=== PATIENT | female | born 1945 | race Caucasian/White ===

== ENCOUNTER → 2018-01-09 | Outpatient (CLI) | payer MEDICARE ==
[~2018-01-09] MED LIST: Abilify5 MG; CYAN1000I IM; Calcium 600 W/1 EAC1; Clonazepam1 M1 PO; DESVENLAFAXINE50 MG PO; FIBER LAXATIVE PO; FISH1000; FLUSAL2505 INH; GABA300 PO; HEARTBURN RELI150 MG PO; IPRA.03NI; MAGOXI400 PO; MARIJUANA; Multiple Vitam1 EAC1 PO; PREG150 PO; Pristiq100 MG PO; Pseudoephedrine30 MG PO; QVAR7.3 G1 IH; Reclast 55 MG/100 M IV; SIME80CH PO; STOOL SOFTENER1 EAC1; VITAMIN D35000 UNIT PO; ZIPR40 PO; [UNRECOGNIZED DRUG - OTHER]
[2018-01-10 08:04] LABS: Source, Urine Clean Catch
[2018-01-10 12:39] LABS: Bilirubin, Urine Neg (Neg); Blood, Urine 1+ (Neg); Glucose Qualitative, Urine Neg (Neg); Ketones, Urine Neg (Neg); Leukocyte Esterase, Urine 1+ (Neg); Nitrite, Urine Pos (Neg); Protein, Urine Neg (Neg); Urobilinogen, Urine NORM (Normal)
[2018-01-10 12:49] LABS: Appearance, Urine Clear (Clear); Color, Urine Yellow (P-Yellow)
[2018-01-10 12:52] LABS: Squamous Epithelial Cells Few /hpf (Few)
[2018-01-10 12:53] LABS: Bacteria Few /hpf
== END ==
LOC: LAB SHORT 17:10 → LAB 17:10
PROVIDERS: Registered Nurse
DX: R10.9 Unspecified abdominal pain (principal)
CPT/HCPCS: 81001; 87077; 87086; 87186

== ENCOUNTER → 2019-01-26 | Outpatient (CLI) | payer MEDICARE | END | disposition home or self-care (01) | LOC: LAB SHORT 14:22 → LAB 14:22 | DX: L08.0 Pyoderma (principal); L98.9 Disorder of the skin and subcutaneous tissue, unspecified | CPT/HCPCS: 87070; 87205 ==

== ENCOUNTER 2019-03-20 12:20 | Emergency (ER) | payer MEDICARE, SELFPAY ==
[~2019-03-20] VITALS: Ht 165.1 cm; Wt 70.3 kg
[2019-03-20 12:52] LABS: Source, Urine Clean Catch
[2019-03-20 12:57] LABS: Bilirubin, Urine Neg (Neg); Blood, Urine 1+ (Neg); Glucose Qualitative, Urine Neg (Neg); Ketones, Urine Neg (Neg); Leukocyte Esterase, Urine 3+ (Neg); Nitrite, Urine Pos (Neg); Protein, Urine Neg (Neg); Urobilinogen, Urine NORM (Normal)
[2019-03-20 13:16] LABS: Color, Urine Yellow (P-Yellow)
[2019-03-20 13:17] LABS: Appearance, Urine Clear (Clear)
[2019-03-20 13:19] LABS: Transitional Epithelial Cells Few /hpf ({null, 0-Rare}); White Blood Cells, Urine TNTC /hpf (0-5)
[2019-03-20 13:20] LABS: Bacteria Many /hpf; Squamous Epithelial Cells Rare /hpf (Few)
[2019-03-20] MEDS ORDERED: MECL12.5 PO (13:34)
[2019-03-20] MEDS ORDERED: Macrobid 100 M100 MG PO (13:34)
== END 2019-03-20 13:54 | disposition home or self-care (01) ==
LOC: ER 12:20
PROVIDERS: Internal Medicine
DX: N39.0 Urinary tract infection, site not specified (principal); H83.09 Labyrinthitis, unspecified ear; R42 Dizziness and giddiness; Z88.8 Allergy status to other drugs, medicaments and biological substances; Z79.899 Other long term (current) drug therapy; M79.7 Fibromyalgia; K21.9 Gastro-esophageal reflux disease without esophagitis; Z87.442 Personal history of urinary calculi; Z87.891 Personal history of nicotine dependence
CPT/HCPCS: 81001; 87077; 87086; 87186; 93005; 93010; 99284-25

== ENCOUNTER → 2019-05-05 | Outpatient (CLI) | payer MEDICARE, SELFPAY ==
[~2019-05-05] MED LIST changes: +MECL12.5 PO; +Macrobid 100 M100 MG PO
[2019-05-05 15:26] LABS: Source, Urine Clean Catch
[2019-05-05 17:01] LABS: Bilirubin, Urine Neg (Neg); Blood, Urine Neg (Neg); Glucose Qualitative, Urine Neg (Neg); Ketones, Urine Neg (Neg); Leukocyte Esterase, Urine Neg (Neg); Nitrite, Urine Neg (Neg); Protein, Urine Neg (Neg); Urobilinogen, Urine NORM (Normal)
[2019-05-05 17:15] LABS: Appearance, Urine Clear (Clear); Color, Urine Yellow (P-Yellow)
[2019-05-06 09:54] LABS: Candida species (DNA Probe) Negative (NEGATIVE); G. vaginalis (DNA Probe) Negative (NEGATIVE); T. vaginalis (DNA Probe) Negative (NEGATIVE)
== END | disposition home or self-care (01) ==
LOC: LAB SHORT 10:38 → LAB 10:38
PROVIDERS: Nurse Practitioner Obstetrics & Gynecology
DX: N76.0 Acute vaginitis (principal); R30.0 Dysuria
CPT/HCPCS: 81003; 87070; 87205; 87480; 87510; 87660

== ENCOUNTER → 2020-07-06 | Outpatient (CLI) | payer MEDICARE | END | disposition home or self-care (01) | LOC: PLD 17:27 → LAB SHORT 17:27 | DX: D22.72 Melanocytic nevi of left lower limb, including hip (principal) | CPT/HCPCS: 88305 ==

== ENCOUNTER → 2020-07-19 | Outpatient (CLI) | payer MEDICARE | LOC: LAB 19:18 → LAB SHORT 19:18 | DX: R32 Unspecified urinary incontinence (principal) | CPT/HCPCS: 87077; 87086; 87186 ==

== ENCOUNTER → 2020-08-19 | Outpatient (CLI) | payer MEDICARE | END | disposition home or self-care (01) | LOC: LAB 18:56 → LAB SHORT 18:56 | DX: R39.15 Urgency of urination (principal) | CPT/HCPCS: 87077; 87086; 87186 ==

== ENCOUNTER 2021-09-03 09:32 | Observation (INO) | payer MEDICARE ==
[~2021-09-03] VITALS: Ht 167.6 cm; Wt 63.9 kg
[2021-09-03 09:53] LABS: BASOPHILS ABSOLUTE AUTO 0.08 K/mm3 (0.00-0.23); BASOPHILS PERCENT AUTO 1 % (0-2); EOSINOPHILS ABSOLUTE AUTO 0.04 K/mm3 (0.00-0.68); EOSINOPHILS PERCENT AUTO 1 % (0-6); Hemoglobin 14.9 g/dL (11.5-16.0); IMMATURE GRAN ABSOLUTE AUTO 0.02 K/mm3 (0.00-0.10); IMMATURE GRAN PERCENT AUTO 0 % (0-1); LYMPHOCYTES ABSOLUTE AUTO 2.12 K/mm3 (0.84-5.20); LYMPHOCYTES PERCENT AUTO 28 % (21-46); MONOCYTES ABSOLUTE AUTO 0.55 K/mm3 (0.16-1.47); MONOCYTES PERCENT AUTO 7 % (4-13); Mean Corpuscular HGB 29.2 pg (26.0-34.0); Mean Corpuscular HGB Conc 33.9 g/dL (31.5-36.5); Mean Corpuscular Volume 86 fL (80-100); Mean Platelet Volume 11.7 fL (9.1-12.4); NEUTROPHILS ABSOLUTE AUTO 4.72 K/mm3 (1.96-9.15); NEUTROPHILS PERCENT AUTO 63 % (41-73); Platelet Count 216 K/mm3 (150-400); RDW Coefficient Variation 13.9 % (11.7-14.2); RDW Standard Deviation 44.1 fL (35.1-46.3); Red Blood Cell Count 5.11 M/mm3 (3.80-5.20); White Blood Cell Count 7.53 K/mm3 (4.00-11.30)
[2021-09-03 10:28] LABS: Influenza A, PCR NEGATIVE (NEGATIVE); Influenza B, PCR NEGATIVE (NEGATIVE); Resp Syncytial Virus, PCR NEGATIVE (NEGATIVE); SARS-Cov-2 (COVID-19) PCR, MMC NEGATIVE (NEGATIVE)
[2021-09-03 10:28] LABS: Albumin, Blood 3.6 g/dL (3.4-5.0); Bilirubin, Total 0.6 mg/dL (0.1-1.0); Bun/Creatinine Ratio 10.4 (12.0-20.0); Calcium, Blood 9.4 mg/dL (8.5-10.1); Creatinine, Blood 0.96 mg/dL (0.40-1.00); Globulin, Blood 3.6 g/dL (2.2-4.0); Potassium, Blood 3.4 mmol/L (3.5-5.5); Total Protein, Blood 7.2 g/dL (6.4-8.2); Troponin I 0.256 ng/mL (0.000-0.040)
[2021-09-03] MEDS ORDERED: Nexium40 MG PO (16:13)
--- NOTE | 2021-09-03 17:58 | NUR ---
SHIFT SUMMARY PT ARRIVED TO UNIT FROM ED. COMFORTABLE AT TIME OF ARRIVAL. VSS. HR NSR TO SB WITH PEAKED T WAVES. NO CP OR PRESSURE. TROPONIN TRENDING UP. PHYSICIAN AWARE. D/T PT HAVING NO SYMPTOMS ORDERS TO CONT TO TREND TROPONIN. NO DVT PROPHYLAXIS ORDERS, SEE PHYSICIAN NOTE. PT ALERT AND ORIENTED X 4. PT CONT TO COMPLAIN OF SEVERE NAUSEA. PHYSICIAN NOTIFIED. NEW ORDERS FOR PHENERGAN, SEE EMAR. ORDERS TO D/C COMPAZINE. PT ABLE TO TURN SELF IN BED. SBA. WILL CONT TO MONITOR UNTIL REPORT GIVEN TO KIERSTEN CARTER.
--- NOTE | 2021-09-04 00:17 | NUR ---
low hr provider notifeied about the patients low hr that has got as low as 39 bpm. pt is asymptomatic and has stable bp's that are wnl. provider aware and said to continue to monitor as long as she is asymptomatic.
--- NOTE | 2021-09-04 06:48 | NUR ---
DIRECTOR SPECIAL EDUCATION SUMMARY PT IS AXO X4 THIS SHIFT AND USES HER CALL LIGHT TO MAKE NEEDS KNOWN. PT DENIED ANY CP OR PRESSURE THIS SHIFT. PT REPORTED MINIMAL NAUSEA THIS SHIFT W RELIEF W IV PHENERGAN, NO EMESIS NOTED THIS SHIFT. VSS AND O2 SATS >90% ON RM AIR. TELE SHOWING SB IN THE 50'S BUT THE PT'S HR GOT LOW 39 BPM WHILE ASLEEP, PROVIDER NOTIFIED BUT PT WAS ASYMPTOMATIC. NS RUNNING AT 75ML/HR THIS SHIFT. PRN ATIVAN OBTAINED WHICH IS SAME DOSE PT TAKES AT HOME SO SHE WAS GIVEN A BEDTIME DOSE HOWEVER THE PT REQUESTED MORE ATIVAN THROUGHOUT THE SHIFT DESPITE BEING TOLD IT WAS A BEDTIME ORDER. WILL REPORT TO ONCOMING RN.
[2021-09-04 08:33] LABS: Hematocrit 37.2 % (33.0-51.0); Hemoglobin 12.5 g/dL (11.5-16.0)
[2021-09-04 08:45] LABS: Anion Gap 7 mmol/L (6-16); Blood Urea Nitrogen 11 mg/dL (8-24); Bun/Creatinine Ratio 12.8 (12.0-20.0); CO2, Blood 21 mmol/L (21-32); Calcium, Blood 8.3 mg/dL (8.5-10.1); Chloride, Blood 118 mmol/L (98-108); Creatinine, Blood 0.86 mg/dL (0.40-1.00); Glomerular Filtration Rate >60 (60-); Glucose, Blood 86 mg/dL (70-99); Potassium, Blood 3.3 mmol/L (3.5-5.5); Sodium, Blood 146 mmol/L (136-145)
--- NOTE | 2021-09-04 13:15 | NUR ---
Echocardiogram completed.
--- NOTE | 2021-09-04 18:50 | NUR ---
NO ACUTE CHANGES. SEE PREVIOUS NOTE. NAUSEA RELIEVED WITH PHENERGAN PRN. NS INFUSING AT 75 ML/HR. POTASSIUM INFUSED THIS SHIFT. DR. POSADA PLAN TO SEE PATIENT THIS EVENING. TELE REMAINS UNCHANGED. ON ROOM AIR. FORGETFUL AT TIMES. CALL LIGHT REMAINS IN REACH. SLEEPING AT THIS TIME. LOW APPETITE. TOLERATING CLEAR LIQUID DIET. 2 SMALL EPISODES OF LOOSE STOOL. UP TO BSC WITH SBA. CALL LIGHT IN REACH, WILL CONTINUE TO MONITOR AND REPORT OFF.
[2021-09-05 03:38] LABS: Hematocrit 36.9 % (33.0-51.0); Hemoglobin 12.3 g/dL (11.5-16.0); Mean Corpuscular HGB 29.5 pg (26.0-34.0); Mean Corpuscular HGB Conc 33.3 g/dL (31.5-36.5); Mean Corpuscular Volume 89 fL (80-100); Mean Platelet Volume 11.4 fL (9.1-12.4); Platelet Count 147 K/mm3 (150-400); RDW Coefficient Variation 14.3 % (11.7-14.2); RDW Standard Deviation 46.1 fL (35.1-46.3); Red Blood Cell Count 4.17 M/mm3 (3.80-5.20); White Blood Cell Count 7.58 K/mm3 (4.00-11.30)
[2021-09-05 03:58] LABS: Alanine Aminotransfer (ALT/SGP 48 U/L (12-78); Albumin, Blood 3.1 g/dL (3.4-5.0); Alk Phos 67 U/L (50-136); Anion Gap 10 mmol/L (6-16); Aspartate Aminotrans (AST/SGOT 59 U/L (12-37); Bilirubin, Total 0.5 mg/dL (0.1-1.0); Blood Urea Nitrogen 9 mg/dL (8-24); Bun/Creatinine Ratio 11.2 (12.0-20.0); CO2, Blood 20 mmol/L (21-32); Calcium, Blood 8.4 mg/dL (8.5-10.1); Chloride, Blood 115 mmol/L (98-108); Glomerular Filtration Rate >60 (60-); Glucose, Blood 83 mg/dL (70-99); Potassium, Blood 3.3 mmol/L (3.5-5.5); Sodium, Blood 145 mmol/L (136-145); Total Protein, Blood 6.1 g/dL (6.4-8.2)
--- NOTE | 2021-09-05 05:31 | NUR ---
CONTINUOUS MINING MACHINE OPERATOR SUMMARY PT IS AXO X4 BUT HAD SOME MOMENTS OF CONFUSION WHEN AWAKENING IN THE NIGHT. PT'S O2 SATS >92% ON RM AIR. BP ELEVATED THIS AM SO PRN HYDRALAZINE ORDER OBTAINED. HR HAS BEEN SB IN THE 50'S FOR MOST OF THE SHIFT. PT AFEBRILE THIS SHIFT. PT HAVING MINOR EPISODES OF NAUSEA THAT WAS RELIEVED W NAUSEA MEDICATION. WILL REPORT TO ONCOMING RN.
--- NOTE | 2021-09-05 11:07 | NUR ---
Call from Dr. Oconnor. Keep pt NPO: he thinks that the EGD can be done early afternoon.
--- NOTE | 2021-09-05 11:56 | NUR ---
Telephone report given to surgical assist; pt will transferred to surgical unit shortly.
--- NOTE | 2021-09-05 17:38 | NUR ---
PT. C/O RESTLESS LEGS TODAY AND STATES SHE CANT TAKE IT. CALL TO DR. ELI AND A ONE TIME ATIVAN PO GIVEN, PT. VERBALIZE RELIEF AND IS RESTING WITHOUT FURTHER COMPLAINT. WHEN UP TO FLOOR TODAY AT 1315 PT. GIVEN PHENERGAN AND VERBZLIZE RELIEF WITH NO FURHTER C/O NAUSEA. TAKING SMALL AMOUNT FULL LIQUID DIET. REMINDED PT. THAT SHE IS TO ONLY HAVE WATER AFTER SHE EATS HER DINNER, VERBALIZE UNDERSTANDING. PLAN; NPO AFTER 1100 ON 11/07 FOR PLANNED EGD AT 1400.
--- NOTE | 2021-09-06 03:37 | NUR ---
SHIFT SUMMARY A/OX4. NO N/V REPORTED BY PATIENT. ATIVAN GIVEN AT SHIFT CHANGE FOR ANXIETY. PT REPORTS SLEEPING WELL THROUGHOUT THE NIGHT. HAS REMAINED NPO EXCEPT WATER THROUGHOUT SHIFT. VOIDING WELL. IND TO THE BATHROOM. WILL REPORT TO ONCOMING RN.
[2021-09-06 05:34] LABS: BASOPHILS ABSOLUTE AUTO 0.09 K/mm3 (0.00-0.23); BASOPHILS PERCENT AUTO 1 % (0-2); EOSINOPHILS ABSOLUTE AUTO 0.14 K/mm3 (0.00-0.68); EOSINOPHILS PERCENT AUTO 2 % (0-6); Hematocrit 40.2 % (33.0-51.0); Hemoglobin 13.9 g/dL (11.5-16.0); IMMATURE GRAN ABSOLUTE AUTO 0.01 K/mm3 (0.00-0.10); IMMATURE GRAN PERCENT AUTO 0 % (0-1); LYMPHOCYTES ABSOLUTE AUTO 2.21 K/mm3 (0.84-5.20); LYMPHOCYTES PERCENT AUTO 27 % (21-46); MONOCYTES PERCENT AUTO 11 % (4-13); Mean Corpuscular HGB 29.7 pg (26.0-34.0); Mean Corpuscular HGB Conc 34.6 g/dL (31.5-36.5); Mean Corpuscular Volume 86 fL (80-100); Mean Platelet Volume 11.7 fL (9.1-12.4); NEUTROPHILS ABSOLUTE AUTO 4.88 K/mm3 (1.96-9.15); NEUTROPHILS PERCENT AUTO 59 % (41-73); Platelet Count 171 K/mm3 (150-400); RDW Coefficient Variation 13.8 % (11.7-14.2); RDW Standard Deviation 43.4 fL (35.1-46.3); Red Blood Cell Count 4.68 M/mm3 (3.80-5.20); White Blood Cell Count 8.23 K/mm3 (4.00-11.30)
[2021-09-06 06:48] LABS: Albumin, Blood 3.4 g/dL (3.4-5.0); Anion Gap 13 mmol/L (6-16); Blood Urea Nitrogen 9 mg/dL (8-24); Bun/Creatinine Ratio 10.7 (12.0-20.0); CO2, Blood 21 mmol/L (21-32); Calcium, Blood 9.2 mg/dL (8.5-10.1); Chloride, Blood 110 mmol/L (98-108); Creatinine, Blood 0.84 mg/dL (0.40-1.00); Glomerular Filtration Rate >60 (60-); Glucose, Blood 67 mg/dL (70-99); Phosphorus, Blood 2.9 mg/dL (2.5-4.9); Potassium, Blood 3.5 mmol/L (3.5-5.5); Sodium, Blood 144 mmol/L (136-145)
--- NOTE | 2021-09-06 12:30 | NUR ---
GLUCOSE THIS A.M. WAS 67, MD AWARE. 10/08 AMP D50 GIVEN AT 10 FOR BLOOD SUGAR 76 PER ORDER. AT NOON BLOOD SUGAR 86MG/DL. DENIED ANY NAUSEA OR DISCOMFORT. AMBULATES WITH STEADY GAIT.
--- NOTE | 2021-09-06 14:22 | NUR ---
TO EGD VIA [facility] AT THIS TIME.
--- NOTE | 2021-09-06 15:14 | NUR ---
09/06/21 1514 [place] Bite Block Placed. PATIENT DETERMINED TO BE ASA APPROPRIATE FOR PROPOFOL SEDATION PRIOR TO START OF PROCEDURE BY DR. POSADA. 3-LEAD EKG REVIEWED WITH PHYSICIAN PRIOR TO START OF PROCEDURE. Patient to ENDO 1 History, Chart, Medications and Allergies reviewed before start of procedure. MONITOR INTACT WITH CONTINUOUS PULSE OXIMETRY AND INTERMITTENT BP. BNO2 VIA N/C INTACT THROUGHOUT SEDATION/PROCEDURE.
--- NOTE | 2021-09-06 15:40 | NUR ---
RETURN TO ROOM VIA [facility]. VOICES NO COMPLAINT. TEA AND WATER GIVEN.
--- NOTE | 2021-09-06 18:08 | NUR ---
CALL TO DR. ELI REGARDING PT. REQUEST FOR DISCHARGE. NO NEW ORDERS OF YET. PATIENT NOTIFIED OF POSSIBLE DISCHARGE THIS EVENING. SIGNIFICANT OTHER LEFT AT THIS TIME TO OBTAIN PATIENT A COAT, IF DISCHARGED, TO WEAR HOME. AT THIS TIME PT. IS DECLINING TELEMETRY.
--- NOTE | 2021-09-06 18:24 | NUR ---
ORDER RECIEVED FOR PT. DISCHARGE.
--- NOTE | 2021-09-06 19:00 | NUR ---
pt. discharged to home. significant other here to take pt. home. belongings sent with patient and dc instructions explained and given. iv rue removed with cannula intact. patient to f/u with pcp in 74 hours. w/c to exit. denies nausea. vss.
== END 2021-09-06 18:50 | disposition home or self-care (01) ==
LOC: ER 09:32 → ERHOLD 09:33 → SURS 09:33 → PCU 09:33 → SURS 09-05 12:08
PROVIDERS: Emergency Medicine; Family Medicine; ADMIT Internal Medicine
DX: R11.2 Nausea with vomiting, unspecified (principal); K44.9 Diaphragmatic hernia without obstruction or gangrene; K31.89 Other diseases of stomach and duodenum; K31.7 Polyp of stomach and duodenum; E87.6 Hypokalemia; R74.8 Abnormal levels of other serum enzymes; D75.839 Thrombocytosis, unspecified; K52.9 Noninfective gastroenteritis and colitis, unspecified; J44.9 Chronic obstructive pulmonary disease, unspecified; K21.9 Gastro-esophageal reflux disease without esophagitis; Z87.891 Personal history of nicotine dependence; M79.7 Fibromyalgia; Z86.010 Personal history of colon polyps; Z90.49 Acquired absence of other specified parts of digestive tract; Z80.0 Family history of malignant neoplasm of digestive organs; Z88.8 Allergy status to other drugs, medicaments and biological substances; Z79.899 Other long term (current) drug therapy; Z20.822 Contact with and (suspected) exposure to COVID-19
CPT/HCPCS: 0241U; 36415; 71045; 80048; 80053; 80069; 82947; 84484; 85014; 85018; 85025; 85027; 93005; 93010; 93306; 96365; 96366; 96372; 96375; 96376; 99285-25; A9270; C9113; G0378; J0780; J1650; J2405; J2550; J2704; J3480; J7030

== ENCOUNTER 2022-03-16 11:46 | Emergency (ER) | payer OTHER ==
[~2022-03-16] VITALS: Ht 177.8 cm; Wt 77.1 kg
[~2022-03-16 11:46] MED LIST changes: +Nexium40 MG PO
[2022-03-16 14:51] LABS: BASOPHILS ABSOLUTE AUTO 0.04 K/mm3 (0.00-0.23); BASOPHILS PERCENT AUTO 1 % (0-2); EOSINOPHILS PERCENT AUTO 0 % (0-6); Hemoglobin 13.3 g/dL (11.5-16.0); IMMATURE GRAN ABSOLUTE AUTO 0.01 K/mm3 (0.00-0.10); IMMATURE GRAN PERCENT AUTO 0 % (0-1); LYMPHOCYTES ABSOLUTE AUTO 1.19 K/mm3 (0.84-5.20); LYMPHOCYTES PERCENT AUTO 24 % (21-46); MONOCYTES ABSOLUTE AUTO 0.26 K/mm3 (0.16-1.47); MONOCYTES PERCENT AUTO 5 % (4-13); Mean Corpuscular HGB 28.4 pg (26.0-34.0); Mean Corpuscular HGB Conc 34.1 g/dL (31.5-36.5); Mean Corpuscular Volume 83 fL (80-100); Mean Platelet Volume 11.5 fL (9.1-12.4); NEUTROPHILS ABSOLUTE AUTO 3.37 K/mm3 (1.96-9.15); NEUTROPHILS PERCENT AUTO 69 % (41-73); Platelet Count 232 K/mm3 (150-400); RDW Coefficient Variation 14.1 % (11.7-14.2); Red Blood Cell Count 4.68 M/mm3 (3.80-5.20); White Blood Cell Count 4.87 K/mm3 (4.00-11.30)
[2022-03-16 15:07] LABS: Albumin, Blood 3.8 g/dL (3.4-5.0); Bilirubin, Total 0.5 mg/dL (0.1-1.0); Bun/Creatinine Ratio 9.9 (12.0-20.0); Calcium, Blood 9.5 mg/dL (8.5-10.1); Creatinine, Blood 0.81 mg/dL (0.40-1.00); Globulin, Blood 3.7 g/dL (2.2-4.0); Potassium, Blood 3.2 mmol/L (3.5-5.5); Total Protein, Blood 7.5 g/dL (6.4-8.2)
[2022-03-16 16:32] LABS: Source, Urine Clean Catch
[2022-03-16 17:11] LABS: Appearance, Urine Clear (Clear); Bilirubin, Urine Neg (Neg); Blood, Urine Neg (Neg); Color, Urine Yellow (P-Yellow); Glucose Qualitative, Urine Neg (Neg); Ketones, Urine 3+ (Neg); Leukocyte Esterase, Urine Neg (Neg); Nitrite, Urine Neg (Neg); Protein, Urine 1+ (Neg); Urobilinogen, Urine NORM (Normal)
[2022-03-16] MEDS ORDERED: ONDA4ODT MM (20:32)
== END 2022-03-16 21:26 | disposition home or self-care (01) ==
LOC: ER 11:46
PROVIDERS: Physician Assistant
DX: R11.2 Nausea with vomiting, unspecified (principal); J44.9 Chronic obstructive pulmonary disease, unspecified; Z88.8 Allergy status to other drugs, medicaments and biological substances; Z79.899 Other long term (current) drug therapy; Z87.891 Personal history of nicotine dependence
CPT/HCPCS: 36415; 70450; 74177; 80053; 83690; 85025; 96374; 96375; 96376; 99284-25; A9270; J1200; J1790; J2060; J2405; J2765; Q9967

== ENCOUNTER → 2022-06-20 | Outpatient (CLI) | payer OTHER ==
[~2022-06-20] MED LIST changes: +ONDA4ODT MM
[2022-06-20 19:40] LABS: Protein, Urine Quantitative <5.0 mg/dL (0.0-11.9)
== END | disposition home or self-care (01) ==
LOC: LAB 14:32 → LAB SHORT 14:32 → LAB FUT 06-13 16:15
PROVIDERS: Internal Medicine Nephrology
DX: N18.30 Chronic kidney disease, stage 3 unspecified (principal); D63.1 Anemia in chronic kidney disease; N25.81 Secondary hyperparathyroidism of renal origin; E55.9 Vitamin D deficiency, unspecified; E78.00 Pure hypercholesterolemia, unspecified; G60.9 Hereditary and idiopathic neuropathy, unspecified; D50.9 Iron deficiency anemia, unspecified; D51.8 Other vitamin B12 deficiency anemias; R76.9 Abnormal immunological finding in serum, unspecified; R94.5 Abnormal results of liver function studies; R94.6 Abnormal results of thyroid function studies
CPT/HCPCS: 81050; 82043; 82570; 84156

== ENCOUNTER → 2022-07-04 | Outpatient (CLI) | payer OTHER ==
[~2022-07-04] MED LIST changes: +ACYC400 PO; +ARIPIPRAZOLE10 M4 PO; +Ativan1 MG PO; +Cyclobenzaprine5 MG; +DESV50 PO; +ESOMEPRAZOLE MA40 MG PO; +FLUTICASONE-SA1 EAC9 INH; +LOSARTAN POTASS25 M2 PO; +PREG200 PO; +TRAM50 PO; +TRAZ150T57 PO; +Ventolin/Prove6.7 GM INH
== END | disposition home or self-care (01) ==
LOC: LAB 11:45 → LAB SHORT 11:45
DX: R30.0 Dysuria (principal)
CPT/HCPCS: 87086

== ENCOUNTER 2022-07-11 17:16 | Inpatient (IN) | payer OTHER ==
[~2022-07-11] VITALS: Ht 170.2 cm; Wt 61.5 kg
[~2022-07-11 17:16] MED LIST changes: -ACYC400 PO; -ARIPIPRAZOLE10 M4 PO; -Ativan1 MG PO; -Cyclobenzaprine5 MG; -DESV50 PO; -ESOMEPRAZOLE MA40 MG PO; -FLUTICASONE-SA1 EAC9 INH; -LOSARTAN POTASS25 M2 PO; -PREG200 PO; -TRAM50 PO; -TRAZ150T57 PO; -Ventolin/Prove6.7 GM INH
[2022-07-11 18:24] LABS: BASOPHILS ABSOLUTE AUTO 0.06 K/mm3 (0.00-0.23); BASOPHILS PERCENT AUTO 1 % (0-2); EOSINOPHILS ABSOLUTE AUTO 0.02 K/mm3 (0.00-0.68); EOSINOPHILS PERCENT AUTO 0 % (0-6); Hematocrit 38.7 % (33.0-51.0); Hemoglobin 13.8 g/dL (11.5-16.0); IMMATURE GRAN ABSOLUTE AUTO 0.01 K/mm3 (0.00-0.10); IMMATURE GRAN PERCENT AUTO 0 % (0-1); LYMPHOCYTES ABSOLUTE AUTO 1.54 K/mm3 (0.84-5.20); LYMPHOCYTES PERCENT AUTO 25 % (21-46); MONOCYTES ABSOLUTE AUTO 0.76 K/mm3 (0.16-1.47); MONOCYTES PERCENT AUTO 13 % (4-13); Mean Corpuscular HGB 28.8 pg (26.0-34.0); Mean Corpuscular HGB Conc 35.7 g/dL (31.5-36.5); Mean Corpuscular Volume 81 fL (80-100); Mean Platelet Volume 11.8 fL (9.1-12.4); NEUTROPHILS ABSOLUTE AUTO 3.68 K/mm3 (1.96-9.15); NEUTROPHILS PERCENT AUTO 61 % (41-73); Platelet Count 333 K/mm3 (150-400); RDW Coefficient Variation 13.9 % (11.7-14.2); RDW Standard Deviation 40.8 fL (35.1-46.3); Red Blood Cell Count 4.79 M/mm3 (3.80-5.20); White Blood Cell Count 6.07 K/mm3 (4.00-11.30)
[2022-07-11 18:43] LABS: Albumin, Blood 3.9 g/dL (3.4-5.0); Albumin/Globulin Ratio 1.2 (0.8-1.8); Bilirubin, Total 0.6 mg/dL (0.1-1.0); Bun/Creatinine Ratio 6.3 (12.0-20.0); Calcium, Blood 10.2 mg/dL (8.5-10.1); Creatinine, Blood 0.96 mg/dL (0.40-1.00); Globulin, Blood 3.2 g/dL (2.2-4.0); Potassium, Blood 3.2 mmol/L (3.5-5.5); Total Protein, Blood 7.1 g/dL (6.4-8.2)
[2022-07-11 20:08] LABS: Influenza A, PCR NEGATIVE (NEGATIVE); Influenza B, PCR NEGATIVE (NEGATIVE); Resp Syncytial Virus, PCR NEGATIVE (NEGATIVE)
[2022-07-11 20:17] LABS: Magnesium, Blood 1.8 mg/dL (1.6-2.4)
[2022-07-11 20:20] LABS: Source, Urine Clean Catch
[2022-07-11 20:30] LABS: Appearance, Urine Clear (Clear); Bilirubin, Urine Neg (Neg); Blood, Urine Neg (Neg); Color, Urine Yellow (P-Yellow); Glucose Qualitative, Urine Neg (Neg); Ketones, Urine 3+ (Neg); Leukocyte Esterase, Urine 1+ (Neg); Nitrite, Urine Neg (Neg); Protein, Urine 1+ (Neg); Specific Gravity, Urine 1.015 (1.003-1.022); Urobilinogen, Urine NORM (Normal)
[2022-07-11] MEDS ORDERED: TRAZ150T57 PO (20:30)
[2022-07-11] MEDS ORDERED: Ativan1 MG PO (20:30)
[2022-07-11] MEDS ORDERED: TRAM50 PO (20:31)
[2022-07-11] MEDS ORDERED: ESOMEPRAZOLE MA40 MG PO (20:31)
[2022-07-11] MEDS ORDERED: Ventolin/Prove6.7 GM INH (20:31)
[2022-07-11] MEDS ORDERED: PREG200 PO (20:32)
[2022-07-11] MEDS ORDERED: ARIPIPRAZOLE10 M4 PO (20:32)
[2022-07-11] MEDS ORDERED: FLUTICASONE-SA1 EAC9 INH (20:36)
[2022-07-11] MEDS ORDERED: LOSARTAN POTASS25 M2 PO (20:36)
[2022-07-11] MEDS ORDERED: Cyclobenzaprine5 MG (20:37)
[2022-07-11 20:42] LABS: Thyroid Stimulating Hormone 1.48 uIU/mL (0.360-4.800)
[2022-07-11 20:45] LABS: SARS-Cov-2 (COVID-19) PCR, MMC POSITIVE (NEGATIVE)
[2022-07-11 20:46] LABS: Bacteria Few /hpf; Calcium Oxalate Crystals Few /hpf; Mucus Light (0-Heavy); Squamous Epithelial Cells Few /hpf (Few)
--- NOTE | 2022-07-12 04:53 | NUR ---
SHIFT SUMMARY PATIENT IS ALERT BUT CONFUSED. PATIENT IS EXTREMELY CONFUSED AND HAS CONSTANTLY TRIED TO GET OUT OF BED. PATIENT PULLED IV THIS SHIFT. PATIENT HAS HAD VEST RESTRAINTS WELL BILATERAL WRIST RESTRAINTS ADDED DUE TO PULLING LINES. PATIENT WAS PUT ON CAMERA FOR SAFETY. PATIENT HAS NOT COMPLAINED OF PAIN, SOB THIS SHIFT. PATIENT HAD COMPLAINED OF N/V AND DRY HEAVED IN BEGINNING OF SHIFT BUT NOTHING RECENT. BED IN LOCKED AND LOWEST POSITION. CALL LIGHT IN PLACE. WILL MONITOR UNTIL SHIFT.
[2022-07-12 05:27] LABS: BASOPHILS ABSOLUTE AUTO 0.05 K/mm3 (0.00-0.23); BASOPHILS PERCENT AUTO 1 % (0-2); EOSINOPHILS ABSOLUTE AUTO 0.03 K/mm3 (0.00-0.68); EOSINOPHILS PERCENT AUTO 1 % (0-6); Hematocrit 37.7 % (33.0-51.0); Hemoglobin 12.8 g/dL (11.5-16.0); IMMATURE GRAN ABSOLUTE AUTO 0.02 K/mm3 (0.00-0.10); IMMATURE GRAN PERCENT AUTO 0 % (0-1); LYMPHOCYTES ABSOLUTE AUTO 1.83 K/mm3 (0.84-5.20); LYMPHOCYTES PERCENT AUTO 28 % (21-46); MONOCYTES ABSOLUTE AUTO 0.92 K/mm3 (0.16-1.47); MONOCYTES PERCENT AUTO 14 % (4-13); Mean Corpuscular HGB 27.9 pg (26.0-34.0); Mean Corpuscular Volume 82 fL (80-100); Mean Platelet Volume 11.7 fL (9.1-12.4); NEUTROPHILS ABSOLUTE AUTO 3.78 K/mm3 (1.96-9.15); NEUTROPHILS PERCENT AUTO 57 % (41-73); Platelet Count 351 K/mm3 (150-400); RDW Coefficient Variation 13.9 % (11.7-14.2); RDW Standard Deviation 41.1 fL (35.1-46.3); Red Blood Cell Count 4.59 M/mm3 (3.80-5.20); White Blood Cell Count 6.63 K/mm3 (4.00-11.30)
[2022-07-12 05:46] LABS: Albumin, Blood 3.6 g/dL (3.4-5.0); Albumin/Globulin Ratio 1.2 (0.8-1.8); Bilirubin, Total 0.7 mg/dL (0.1-1.0); Bun/Creatinine Ratio 8.4 (12.0-20.0); Calcium, Blood 9.3 mg/dL (8.5-10.1); Creatinine, Blood 0.83 mg/dL (0.40-1.00); Globulin, Blood 2.9 g/dL (2.2-4.0); Potassium, Blood 3.2 mmol/L (3.5-5.5); Total Protein, Blood 6.5 g/dL (6.4-8.2)
[2022-07-12 06:39] LABS: Magnesium, Blood 1.9 mg/dL (1.6-2.4)
--- NOTE | 2022-07-12 18:54 | NUR ---
SHIFT SUMMARY PT IS EXTREMELY ANXIOUS. SHE HAS BEEN CALLING OUT ALL DAY DESPITE BEING MEDICATED. SHE S UNABLE TO NAME HER NEEDS WHEN ASKED HOW WE CAN HELP HER. SHE EELS URGENCY AND BURNING WHEN URINATING. SHE IS IN RESTRAINTS TO PREVENT FALLS, AND TO HELP PROTECT LINES NEEDED FOR ABX. SHE IS A STANDBY TO THE BATHROOM. SHE HAS A POOR APPETITE.
--- NOTE | 2022-07-13 04:02 | NUR ---
PT IN ISOLATION FOR COVID. PT IN RESTRAINTS - SOFT WRIST BILATERALLY AND TAJ VEST. PT AMBULATED TO THE BATHROOM WITH GB AND FWW AND 2 STAFF ASSIST, UNSTEADY ON HER FEET. PT IS CONFUSED, ASKING TO LEAVE. RESTRAINTS FOR PRESERVATION OF LINES, AND SAFETY OF PT SHE IS A HIGH FALL RISK AND IMPULSIVE. PT PULLED OUT ONE IV, RN PLACED ANOTHER IN THE LEFT WRIST. AWAITING URINE COLLECTION FOR TOXICOLOGY SCREEN BUT PT VOIDS IN ATTENDS, AND HASN'T VOIDED IN THE HAT. SHE C/O URINARY URGENCY, BUT WILL NOT VOID IN THE TOILET. BED IN LOWEST POSITION. REMOTE MONITORING IN PLACE. RN WILL MONITOR UNTIL SHIFT CHANGE.
--- NOTE | 2022-07-13 05:54 | NUR ---
ADEEL HAD FOUR LOOSE, WATERY STOOLS THIS SHIFT. COLLECTED A STOOL SPECIMEN. DR. ECHAVARRIA WITH ORDERS FOR A GI PANEL. SENT STOOL SPECIMEN TO LAB. PT HAS NOT VOIDED URINE IN THE TOILET, UNABLE TO COLLECT TOXICOLOGY SCREEN.
--- NOTE | 2022-07-13 06:30 | NUR ---
ADMINISTERED LOPERAMIDE PER PRN EMAR ORDER.
[2022-07-13 09:08] LABS: Adenovirus F 40/41 Not Detected (NOT DETECT); Astrovirus Not Detected (NOT DETECT); Campylobacter Sp Not Detected (NOT DETECT); Cryptosporidium Not Detected (NOT DETECT); Cyclospora Cayetanensis Not Detected (NOT DETECT); E. Coli O157 Not Detected (NOT DETECT); Entamoeba Histolytica Not Detected (NOT DETECT); Enteroaggregative E. coli-EAEC Not Detected (NOT DETECT); Enteropathogenic E. coli-EPEC Not Detected (NOT DETECT); Enterotoxigenic E. coli-ETEC Not Detected (NOT DETECT); Giardia Lamblia Not Detected (NOT DETECT); Norovirus GI/GII Not Detected (NOT DETECT); Plesiomonas Shigelloides Not Detected (NOT DETECT); Rotavirus A Not Detected (NOT DETECT); Salmonella Sp Not Detected (NOT DETECT); Sapovirus Not Detected (NOT DETECT); Shiga Toxin-prod E. coli-STEC Not Detected (NOT DETECT); Shigella/Enteroin E. coli-EIEC Not Detected (NOT DETECT); Vibrio Cholerae Not Detected (NOT DETECT); Vibrio Sp Not Detected (NOT DETECT); Yersinia Enterocolitica Not Detected (NOT DETECT)
--- NOTE | 2022-07-13 19:51 | NUR ---
END OF SHIFT SUMMARY: PATIENT SHOWED IMPROVEMENT IN MENTATION AND PHYSICAL COMFORT THROUGHOUT THE DAY. PATIENT STARTED THE SHIFT WITH TREMBLING HANDS AND INABILITY TO ARTICULATE THOUGHTS OR ANSWER QUESTIONS FULLY. BY THE END OF THE SHIFT, PATIENTS HANDS WERE CALM AND SHE WAS ABLE TO FORM SHORT, COMPLETE SENTENCES. PATIENT ABLE TO FOLLOW DIRECTIONS THROUGHOUT THE DAY. PATIENT HAS A VERY MINIMAL APPETITE. NO SHORTNESS OF BREATH OR DIFFICULTY BREATHING NOTED. PATIENT COMPLIANT WITH MEDICATIONS. PATIENT UP TO THE BATHROOM WITH URGENCY. PATIENT UP TO THE CHAIR AND RECLINER. PATIENT WORKED WITH PT.
--- NOTE | 2022-07-14 04:50 | NUR ---
SHIFT SUMMARY 76 YR F ADMITTED ON 07/11/22 FOR UTI/AMS. FULL CODE. NO ACUTE CHANGES THIS SHIFT. PT HAD A TAJ VEST WHEN THIS NURSE CAME ON SHIFT BUT PT WAS SITTING UP IN THE CHAIR AND WAS NOT ATTEMPTING TO GET UP ON HER OWN SO RESTRAINT ORDER WAS DC'D. SHE HAS HAD TROUBLE SLEEPING AND THE SHIFT WORE ON PT BECAME INCREASINGLY ANXIOUS CALLING OUT FOR HELP. WHEN SHE WAS ASKED WHAT SHE NEEDED, SHE SAID SHE NEEDED SLEEP. LATE IN THE SHIFT SHE HAS MADE SEVERAL ATTEMPT TO GET OUT OF BED UNSUPERVISED AND THIS NURSE HAS TRIED REASONING AND DISTRACTION. SHE MAY END UP BEING PUT BACK INTO A TAJ VEST FOR HER OWN SAFETY. SHE IS VERY CONFUSED AND IS NOT EASILY REDIRECTED.
[2022-07-14 08:39] LABS: BASOPHILS ABSOLUTE AUTO 0.09 K/mm3 (0.00-0.23); BASOPHILS PERCENT AUTO 1 % (0-2); EOSINOPHILS ABSOLUTE AUTO 0.12 K/mm3 (0.00-0.68); EOSINOPHILS PERCENT AUTO 2 % (0-6); Hematocrit 39.3 % (33.0-51.0); Hemoglobin 13.5 g/dL (11.5-16.0); IMMATURE GRAN ABSOLUTE AUTO 0.01 K/mm3 (0.00-0.10); IMMATURE GRAN PERCENT AUTO 0 % (0-1); LYMPHOCYTES ABSOLUTE AUTO 2.14 K/mm3 (0.84-5.20); LYMPHOCYTES PERCENT AUTO 32 % (21-46); MONOCYTES ABSOLUTE AUTO 0.92 K/mm3 (0.16-1.47); MONOCYTES PERCENT AUTO 14 % (4-13); Mean Corpuscular HGB 28.4 pg (26.0-34.0); Mean Corpuscular HGB Conc 34.4 g/dL (31.5-36.5); Mean Corpuscular Volume 83 fL (80-100); Mean Platelet Volume 11.3 fL (9.1-12.4); NEUTROPHILS ABSOLUTE AUTO 3.38 K/mm3 (1.96-9.15); NEUTROPHILS PERCENT AUTO 51 % (41-73); Platelet Count 315 K/mm3 (150-400); RDW Coefficient Variation 14.3 % (11.7-14.2); Red Blood Cell Count 4.75 M/mm3 (3.80-5.20); White Blood Cell Count 6.66 K/mm3 (4.00-11.30)
[2022-07-14 08:56] LABS: Bun/Creatinine Ratio 8.6 (12.0-20.0); Calcium, Blood 9.1 mg/dL (8.5-10.1); Creatinine, Blood 0.93 mg/dL (0.40-1.00); Potassium, Blood 2.9 mmol/L (3.5-5.5)
[2022-07-14] MEDS ORDERED: DESV50 PO ×2 (11:03→11:04)
[2022-07-14 13:10] LABS: U Amphetamine Screen Not Detected; U Barbituate Screen Not Detected; U Benzodiazapine Screen DETECTED; U Buprenorphine Screen Not Detected; U Cannabinoids Screen DETECTED; U Cocaine Screen Not Detected; U Methadone Screen Not Detected; U Methamphetamine Screen Not Detected; U Opiates Screen Not Detected; U Oxycodone Screen Not Detected; U Phencyclidine Screen Not Detected; U Propoxyphene Screen Not Detected
--- NOTE | 2022-07-14 18:51 | NUR ---
END OF SHIFT SUMMARY: PATIENT DEMONSTRATED IMPROVEMENTS IN HER MENTATION TODAY. SHE WAS ABLE TO SPEAK ABOUT HER HOME MEDICATIONS, HOW SHE WAS FEELING AND FOLLOW DIRECTIONS. HOWEVER, SHE CONTINUES TO BE SLOW TO RESPOND, TO SPEAK AND IS UNABLE TO MAKE A DECISION. SHE AGREES WITH THE RN THAT SHE IS NOT AT HER BASELINE. PATIENT HAS DIFFICULTY GETTING COMFORTABLE, AND HAS DIFFICULTY ARTICULATING WHAT IS MAKING HER UNCOMFORTABLE. PATIENT RESTARTED ON SOME OF HER HOME MEDICATIONS REGIMES. PATIENT MEDICATED FOR PAIN AND ANXIETY. PATIENT ABLE TO WORK WITH PT. PATIENT UP TO THE CHAIR FOR MEALS AND UNDER HER OWN INITIATIVE ASKED TO TAKE A WALK IN THE ROOM.
--- NOTE | 2022-07-15 05:54 | NUR ---
SHIFT SUMMARY ASSUMED CARE OF PT AT 1900. PT IS A/OX4. HEART SOUNDS REGULAR. LUNG SOUNDS DIMINISHED. PT REMAINED ON RA. PT STATES SHE IS FEELING MUCH BETTER. WHEN RECEIVING NOC MEDICATIONS, PT ASKED FOR ATIVAN, WHICH WASNT SCHEDULED UNTIL THE AM, AND SAID SHE WOULD TAKE TRAMADOL INSTEAD. WHEN ASKED WHY, PT STATES TO HELP HER SLEEP, DESPITE ALREADY BEING DROWSEY. PT EDUCATED ABOUT NOT TAKING MEDICATIONS UNLESS INDICATED. PT SLEPT T/O THE NIGHT. CONTINENT OF URINE. 1P SBA TO BATHROOM.
[2022-07-15 10:00] LABS: Bun/Creatinine Ratio 10.6 (12.0-20.0); Calcium, Blood 9.3 mg/dL (8.5-10.1); Creatinine, Blood 0.94 mg/dL (0.40-1.00); Potassium, Blood 3.5 mmol/L (3.5-5.5)
[2022-07-15] MEDS ORDERED: ACYC400 PO (12:41)
== END 2022-07-15 13:00 | disposition home health service (06) | DRG 177 ==
LOC: ER 17:16 → MEDS 21:33
PROVIDERS: Emergency Medicine; Internal Medicine; ADMIT Internal Medicine
PROC: 8E0ZXY6 Isolation (ICD-10-PCS; principal; 2022-07-11)
PROC: XW033H6 Introduction of Other New Technology Monoclonal Antibody into Peripheral Vein, Percutaneous Approach, New Technology Group 6 (ICD-10-PCS; 2022-07-11)
DX: U07.1 COVID-19 (principal); G93.41 Metabolic encephalopathy; F32.A Depression, unspecified; F41.9 Anxiety disorder, unspecified; M79.7 Fibromyalgia; E87.6 Hypokalemia; J44.9 Chronic obstructive pulmonary disease, unspecified; K21.9 Gastro-esophageal reflux disease without esophagitis; G89.29 Other chronic pain; Z87.442 Personal history of urinary calculi; I10 Essential (primary) hypertension; Z79.899 Other long term (current) drug therapy; Z88.8 Allergy status to other drugs, medicaments and biological substances; Z90.49 Acquired absence of other specified parts of digestive tract; E86.0 Dehydration; R30.0 Dysuria; Z87.891 Personal history of nicotine dependence; Z23 Encounter for immunization
CPT/HCPCS: 0241U; 36415; 70450; 71045; 80048; 80053; 81001; 83735; 84443; 85025; 87086; 87507; 94640; 94664; 94760; 97110; 97116; 97162; 97165; 97535; 99285-25; A9270; J0696; J1650; J2060; J3010; J3480; J7030; M0222

== ENCOUNTER 2023-01-04 18:48 | Emergency (ER) | payer OTHER ==
[~2023-01-04] VITALS: Ht 170.2 cm; Wt 79.4 kg
[~2023-01-04 18:48] MED LIST changes: +ACYC400 PO; +ARIPIPRAZOLE10 M4 PO; +Ativan1 MG PO; +Cyclobenzaprine5 MG; +DESV50 PO; +ESOMEPRAZOLE MA40 MG PO; +FLUTICASONE-SA1 EAC9 INH; +LOSARTAN POTASS25 M2 PO; +PREG200 PO; +TRAM50 PO; +TRAZ150T57 PO; +Ventolin/Prove6.7 GM INH
[2023-01-04 19:55] LABS: Source, Urine Clean Catch
[2023-01-04 19:58] LABS: Bilirubin, Urine Neg (Neg); Blood, Urine Neg (Neg); Glucose Qualitative, Urine Neg (Neg); Ketones, Urine 2+ (Neg); Leukocyte Esterase, Urine 1+ (Neg); Nitrite, Urine Neg (Neg); Protein, Urine 1+ (Neg); Urobilinogen, Urine NORM (Normal)
[2023-01-04 19:58] LABS: BASOPHILS ABSOLUTE AUTO 0.04 K/mm3 (0.00-0.23); BASOPHILS PERCENT AUTO 1 % (0-2); EOSINOPHILS PERCENT AUTO 0 % (0-6); Hematocrit 37.2 % (33.0-51.0); Hemoglobin 12.8 g/dL (11.5-16.0); IMMATURE GRAN ABSOLUTE AUTO 0.02 K/mm3 (0.00-0.10); IMMATURE GRAN PERCENT AUTO 0 % (0-1); LYMPHOCYTES ABSOLUTE AUTO 1.51 K/mm3 (0.84-5.20); LYMPHOCYTES PERCENT AUTO 25 % (21-46); MONOCYTES ABSOLUTE AUTO 0.49 K/mm3 (0.16-1.47); MONOCYTES PERCENT AUTO 8 % (4-13); Mean Corpuscular HGB 29.4 pg (26.0-34.0); Mean Corpuscular HGB Conc 34.4 g/dL (31.5-36.5); Mean Corpuscular Volume 86 fL (80-100); Mean Platelet Volume 12.5 fL (9.1-12.4); NEUTROPHILS ABSOLUTE AUTO 3.89 K/mm3 (1.96-9.15); NEUTROPHILS PERCENT AUTO 65 % (41-73); Platelet Count 143 K/mm3 (150-400); RDW Coefficient Variation 14.3 % (11.7-14.2); RDW Standard Deviation 44.6 fL (35.1-46.3); Red Blood Cell Count 4.35 M/mm3 (3.80-5.20); White Blood Cell Count 5.95 K/mm3 (4.00-11.30)
[2023-01-04 20:07] LABS: Appearance, Urine Hazy (Clear); Color, Urine Yellow (P-Yellow)
[2023-01-04 20:08] LABS: Bacteria Mod /hpf; Red Blood Cells, Urine Not Seen /hpf (0-2); Squamous Epithelial Cells Many /hpf (Few); White Blood Cells, Urine 0-2 /hpf (0-5)
[2023-01-04 20:19] LABS: Albumin, Blood 3.8 g/dL (3.4-5.0); Albumin/Globulin Ratio 1.3 (0.8-1.8); Bilirubin, Total 0.7 mg/dL (0.1-1.0); Bun/Creatinine Ratio 10.9 (12.0-20.0); Calcium, Blood 8.5 mg/dL (8.5-10.1); Creatinine, Blood 0.92 mg/dL (0.40-1.00); Globulin, Blood 2.9 g/dL (2.2-4.0); Potassium, Blood 3.7 mmol/L (3.5-5.5); Total Protein, Blood 6.7 g/dL (6.4-8.2)
[2023-01-04] MEDS ORDERED: FUROSEMIDE20 MG PO (20:47)
[2023-01-04] MEDS ORDERED: CIPR250 PO (20:49)
[2023-01-04] MEDS ORDERED: ESTRADIOL TD (20:50)
[2023-01-04] MEDS ORDERED: ONDA4ODT MM (21:35)
[2023-01-05] MEDS ORDERED: ONDA4 PO (17:53)
== END 2023-01-04 23:37 | disposition home or self-care (01) ==
LOC: ER 18:48
PROVIDERS: Student in an Organized Health Care Education/Training Program
DX: R11.2 Nausea with vomiting, unspecified (principal); F12.90 Cannabis use, unspecified, uncomplicated; N39.0 Urinary tract infection, site not specified; J44.9 Chronic obstructive pulmonary disease, unspecified; I10 Essential (primary) hypertension; Z87.891 Personal history of nicotine dependence; Z88.0 Allergy status to penicillin; Z88.8 Allergy status to other drugs, medicaments and biological substances; Z79.899 Other long term (current) drug therapy
CPT/HCPCS: 80053; 81001; 83690; 85025; 87086; 96365; 96375; 99284-25; J0696; J2405; J7030

== ENCOUNTER 2023-01-05 11:13 | Emergency (ER) | payer OTHER ==
[~2023-01-05] VITALS: Ht 167.6 cm; Wt 63.5 kg
[~2023-01-05 11:13] MED LIST changes: +CIPR250 PO; +ESTRADIOL TD; +FUROSEMIDE20 MG PO
[2023-01-05 13:06] LABS: BASOPHILS ABSOLUTE AUTO 0.02 K/mm3 (0.00-0.23); BASOPHILS PERCENT AUTO 0 % (0-2); EOSINOPHILS PERCENT AUTO 0 % (0-6); Hematocrit 36.6 % (33.0-51.0); Hemoglobin 12.6 g/dL (11.5-16.0); IMMATURE GRAN ABSOLUTE AUTO 0.03 K/mm3 (0.00-0.10); IMMATURE GRAN PERCENT AUTO 0 % (0-1); LYMPHOCYTES ABSOLUTE AUTO 1.29 K/mm3 (0.84-5.20); LYMPHOCYTES PERCENT AUTO 16 % (21-46); MONOCYTES ABSOLUTE AUTO 0.64 K/mm3 (0.16-1.47); MONOCYTES PERCENT AUTO 8 % (4-13); Mean Corpuscular HGB 29.4 pg (26.0-34.0); Mean Corpuscular HGB Conc 34.4 g/dL (31.5-36.5); Mean Corpuscular Volume 85 fL (80-100); Mean Platelet Volume 12.5 fL (9.1-12.4); NEUTROPHILS ABSOLUTE AUTO 6.33 K/mm3 (1.96-9.15); NEUTROPHILS PERCENT AUTO 76 % (41-73); Platelet Count 132 K/mm3 (150-400); RDW Coefficient Variation 14.4 % (11.7-14.2); Red Blood Cell Count 4.29 M/mm3 (3.80-5.20); White Blood Cell Count 8.31 K/mm3 (4.00-11.30)
[2023-01-05 13:28] LABS: Albumin, Blood 3.7 g/dL (3.4-5.0); Albumin/Globulin Ratio 1.2 (0.8-1.8); Bilirubin, Total 0.7 mg/dL (0.1-1.0); Bun/Creatinine Ratio 10.7 (12.0-20.0); Calcium, Blood 8.5 mg/dL (8.5-10.1); Creatinine, Blood 0.84 mg/dL (0.40-1.00); Globulin, Blood 3.1 g/dL (2.2-4.0); Potassium, Blood 3.5 mmol/L (3.5-5.5); Total Protein, Blood 6.8 g/dL (6.4-8.2)
[2023-01-05 16:29] LABS: Source, Urine Straight Cath
[2023-01-05 16:56] LABS: Appearance, Urine Clear (Clear); Bilirubin, Urine Neg (Neg); Blood, Urine 1+ (Neg); Color, Urine Yellow (P-Yellow); Glucose Qualitative, Urine Neg (Neg); Ketones, Urine 3+ (Neg); Leukocyte Esterase, Urine Neg (Neg); Nitrite, Urine Neg (Neg); Protein, Urine 2+ (Neg); Specific Gravity, Urine 1.015 (1.003-1.022); Urobilinogen, Urine NORM (Normal)
[2023-01-05 17:10] LABS: Amorphous Light (0-Heavy); Bacteria Mod /hpf; Mucus Light (0-Heavy); Red Blood Cells, Urine 0-2 /hpf (0-2); Squamous Epithelial Cells Rare /hpf (Few); White Blood Cells, Urine 0-2 /hpf (0-5)
[2023-01-05 17:28] LABS: U Amphetamine Screen Not Detected; U Barbituate Screen Not Detected; U Benzodiazapine Screen DETECTED; U Buprenorphine Screen Not Detected; U Cannabinoids Screen DETECTED; U Cocaine Screen Not Detected; U Methadone Screen Not Detected; U Methamphetamine Screen Not Detected; U Opiates Screen Not Detected; U Oxycodone Screen Not Detected; U Phencyclidine Screen Not Detected; U Propoxyphene Screen Not Detected
[2023-01-05] MEDS ORDERED: ONDA4 PO (17:53)
== END 2023-01-05 18:35 | disposition home or self-care (01) ==
LOC: ER 11:13
PROVIDERS: Emergency Medicine
DX: R11.2 Nausea with vomiting, unspecified (principal); N39.0 Urinary tract infection, site not specified; K21.9 Gastro-esophageal reflux disease without esophagitis; I10 Essential (primary) hypertension; Z87.891 Personal history of nicotine dependence; Z79.899 Other long term (current) drug therapy
CPT/HCPCS: 36415; 71046; 80053; 81001; 83690; 84484; 85025; 87086; 93005; 93010; 96361-59; 96374-59; 96375-59; 99284-25; J0696; J1630; J2405; J7030; P9612

== ENCOUNTER 2023-07-23 09:07 | Day surgery (SDC) | payer OTHER ==
[~2023-07-23] VITALS: Ht 167.6 cm; Wt 65.9 kg
[~2023-07-23 09:07] MED LIST changes: +ONDA4 PO
[2023-07-23 10:31] VITALS: BP 119/54
== END 2023-07-23 10:50 | disposition home or self-care (01) ==
LOC: ORSCSDS 09:07
PROVIDERS: Student in an Organized Health Care Education/Training Program
PROC: 08RJ3JZ Replacement of Right Lens with Synthetic Substitute, Percutaneous Approach (ICD-10-PCS; principal; 2023-07-23 10:30)
DX: H25.13 Age-related nuclear cataract, bilateral (principal); I10 Essential (primary) hypertension; K21.9 Gastro-esophageal reflux disease without esophagitis; Z87.891 Personal history of nicotine dependence; E03.9 Hypothyroidism, unspecified; J45.909 Unspecified asthma, uncomplicated; Z79.899 Other long term (current) drug therapy
CPT/HCPCS: J2250; J3010; J7040; V2632

== ENCOUNTER 2023-08-06 09:13 | Day surgery (SDC) | payer OTHER ==
[~2023-08-06] VITALS: Ht 167.6 cm; Wt 68.0 kg
--- NOTE | 2023-08-06 09:51 | NUR ---
08/06/23 0951 Tsering Conteh CALL LIGHT WITHIN REACH. TETRACAINE IN LEFT EYE AT 0950 AND PLEDGETT IN AT 0930
[2023-08-06 11:05] VITALS: BP 126/60
--- NOTE | 2023-08-06 11:25 | NUR ---
08/06/23 1124 Reece An IV REMOVED INTACT. SITE WNL.
== END 2023-08-06 11:22 | disposition home or self-care (01) ==
LOC: ORSCSDS 09:13
PROVIDERS: Student in an Organized Health Care Education/Training Program
PROC: 08RK3JZ Replacement of Left Lens with Synthetic Substitute, Percutaneous Approach (ICD-10-PCS; principal; 2023-08-06 10:30)
DX: H25.12 Age-related nuclear cataract, left eye (principal); Z96.1 Presence of intraocular lens; I10 Essential (primary) hypertension; J45.909 Unspecified asthma, uncomplicated; F41.9 Anxiety disorder, unspecified; F32.A Depression, unspecified; M79.7 Fibromyalgia; K21.9 Gastro-esophageal reflux disease without esophagitis; E03.9 Hypothyroidism, unspecified; Z79.899 Other long term (current) drug therapy; Z87.891 Personal history of nicotine dependence
CPT/HCPCS: J2250; J3010; J7040; V2632

== ENCOUNTER → 2023-10-04 | Outpatient (CLI) | payer OTHER | END | disposition home or self-care (01) | LOC: LAB 18:16 → LAB SHORT 18:16 | DX: N39.0 Urinary tract infection, site not specified (principal) | CPT/HCPCS: 87086 ==

== ENCOUNTER 2024-03-27 10:49 | Emergency (ER) | payer OTHER ==
[~2024-03-27] VITALS: Ht 162.6 cm; Wt 77.1 kg
[2024-03-27 11:18] LABS: BASOPHILS ABSOLUTE AUTO 0.01 K/mm3 (0.00-0.23); BASOPHILS PERCENT AUTO 0 % (0-2); EOSINOPHILS PERCENT AUTO 0 % (0-6); Hematocrit 35.9 % (33.0-51.0); IMMATURE GRAN ABSOLUTE AUTO 0.03 K/mm3 (0.00-0.10); IMMATURE GRAN PERCENT AUTO 0 % (0-1); LYMPHOCYTES ABSOLUTE AUTO 1.14 K/mm3 (0.84-5.20); LYMPHOCYTES PERCENT AUTO 12 % (21-46); MONOCYTES ABSOLUTE AUTO 0.72 K/mm3 (0.16-1.47); MONOCYTES PERCENT AUTO 8 % (4-13); Mean Corpuscular HGB 30.3 pg (26.0-34.0); Mean Corpuscular HGB Conc 36.2 g/dL (31.5-36.5); Mean Corpuscular Volume 84 fL (80-100); Mean Platelet Volume 10.9 fL (9.1-12.4); NEUTROPHILS ABSOLUTE AUTO 7.36 K/mm3 (1.96-9.15); NEUTROPHILS PERCENT AUTO 80 % (41-73); Platelet Count 177 K/mm3 (150-400); RDW Coefficient Variation 13.7 % (11.7-14.2); Red Blood Cell Count 4.29 M/mm3 (3.80-5.20); White Blood Cell Count 9.26 K/mm3 (4.00-11.30)
[2024-03-27] MEDS ORDERED: NS 1,000 ML IV SCH (11:35)
[2024-03-27] MEDS ORDERED: Prochlorperazine Edisylate 10 mg Vial IV ONE (11:35)
[2024-03-27 11:44] LABS: Albumin, Blood 3.8 g/dL (3.4-5.0); Albumin/Globulin Ratio 1.4 (0.8-1.8); Bilirubin, Total 0.7 mg/dL (0.1-1.0); Bun/Creatinine Ratio 14.2 (12.0-20.0); Calcium, Blood 8.3 mg/dL (8.5-10.1); Creatinine, Blood 0.7 mg/dL (0.40-1.00); Globulin, Blood 2.7 g/dL (2.2-4.0); Total Protein, Blood 6.5 g/dL (6.4-8.2)
[2024-03-27 13:03] LABS: Source, Urine Clean Catch
[2024-03-27 13:14] LABS: Appearance, Urine Clear (Clear); Bilirubin, Urine Neg (Neg); Blood, Urine 1+ (Neg); Color, Urine Yellow (P-Yellow); Glucose Qualitative, Urine Neg (Neg); Ketones, Urine 2+ (Neg); Leukocyte Esterase, Urine Neg (Neg); Nitrite, Urine Neg (Neg); Protein, Urine Neg (Neg); Urobilinogen, Urine NORM (Normal)
[2024-03-27 13:22] LABS: Bacteria Rare /hpf; Squamous Epithelial Cells Rare /hpf (Few); White Blood Cells, Urine Not Seen /hpf (0-5)
[2024-03-27] MEDS ORDERED: Potassium Chloride 20 MEQ TabCR PO ONE (13:30)
[2024-03-27] MEDS ORDERED: COMPAZINE10 MG PO (13:33)
[2024-03-27 13:58] VITALS: BP 140/78
== END 2024-03-27 13:59 | disposition home or self-care (01) ==
LOC: ER 10:49
PROVIDERS: Emergency Medicine
DX: A08.4 Viral intestinal infection, unspecified (principal); E87.6 Hypokalemia; E86.1 Hypovolemia; K21.9 Gastro-esophageal reflux disease without esophagitis; I10 Essential (primary) hypertension; J44.9 Chronic obstructive pulmonary disease, unspecified; Z87.891 Personal history of nicotine dependence
CPT/HCPCS: 74177; 80053; 81001; 83690; 84484; 85025; 93005; 93010; 96361; 96374-59; 99285-25; A9270; J0780; J7030; Q9967

== ENCOUNTER 2024-04-29 19:21 | Emergency (ER) | payer OTHER ==
[~2024-04-29] VITALS: Ht 167.6 cm; Wt 70.3 kg
[~2024-04-29 19:21] MED LIST changes: +COMPAZINE10 MG PO
[2024-04-29] MEDS ORDERED: NS 1,000 ML IV SCH (19:55)
[2024-04-29] MEDS ORDERED: Haloperidol Lactate Inj. 5 MG/ML Injection IV ONE ×2 (20:00→23:25)
[2024-04-29 20:22] LABS: BASOPHILS ABSOLUTE AUTO 0.05 K/mm3 (0.00-0.23); BASOPHILS PERCENT AUTO 1 % (0-2); EOSINOPHILS ABSOLUTE AUTO 0.01 K/mm3 (0.00-0.68); EOSINOPHILS PERCENT AUTO 0 % (0-6); Hemoglobin 13.8 g/dL (11.5-16.0); IMMATURE GRAN ABSOLUTE AUTO 0.02 K/mm3 (0.00-0.10); IMMATURE GRAN PERCENT AUTO 0 % (0-1); LYMPHOCYTES ABSOLUTE AUTO 1.25 K/mm3 (0.84-5.20); LYMPHOCYTES PERCENT AUTO 17 % (21-46); MONOCYTES ABSOLUTE AUTO 0.43 K/mm3 (0.16-1.47); MONOCYTES PERCENT AUTO 6 % (4-13); Mean Corpuscular HGB 30.2 pg (26.0-34.0); Mean Corpuscular HGB Conc 35.4 g/dL (31.5-36.5); Mean Corpuscular Volume 85 fL (80-100); Mean Platelet Volume 10.8 fL (9.1-12.4); NEUTROPHILS ABSOLUTE AUTO 5.83 K/mm3 (1.96-9.15); NEUTROPHILS PERCENT AUTO 77 % (41-73); Platelet Count 207 K/mm3 (150-400); RDW Coefficient Variation 13.8 % (11.7-14.2); RDW Standard Deviation 43.2 fL (35.1-46.3); Red Blood Cell Count 4.57 M/mm3 (3.80-5.20); White Blood Cell Count 7.59 K/mm3 (4.00-11.30)
[2024-04-29 20:38] LABS: Source, Urine Straight Cath
[2024-04-29 20:39] LABS: Albumin, Blood 3.7 g/dL (3.4-5.0); Albumin/Globulin Ratio 1.2 (0.8-1.8); Bilirubin, Total 0.6 mg/dL (0.1-1.0); Calcium, Blood 8.7 mg/dL (8.5-10.1); Creatinine, Blood 0.89 mg/dL (0.40-1.00); Potassium, Blood 3.8 mmol/L (3.5-5.5); Total Protein, Blood 6.7 g/dL (6.4-8.2)
[2024-04-29 20:45] LABS: Bilirubin, Urine Neg (Neg); Blood, Urine Neg (Neg); Glucose Qualitative, Urine Neg (Neg); Ketones, Urine 3+ (Neg); Leukocyte Esterase, Urine 2+ (Neg); Nitrite, Urine Neg (Neg); Protein, Urine 1+ (Neg); Urobilinogen, Urine NORM (Normal)
[2024-04-29 20:59] LABS: Appearance, Urine Hazy (Clear); Color, Urine Yellow (P-Yellow)
[2024-04-29 21:00] LABS: Bacteria Mod /hpf; Red Blood Cells, Urine 0-2 /hpf (0-2); Squamous Epithelial Cells Many /hpf (Few)
[2024-04-29] MEDS ORDERED: Metoclopramide HCl 5MG / ML 2ML Vial IV ONE (22:05)
[2024-04-29] MEDS ORDERED: Lactated Ringer's 1,000 ML IV SCH (22:05)
[2024-04-29] MEDS ORDERED: PROM12.5S PR (23:39)
[2024-04-29] MEDS ORDERED: ONDA4ODT MM (23:39)
[2024-04-30 00:15] VITALS: BP 150/80
== END 2024-04-30 00:21 | disposition home or self-care (01) ==
LOC: ER 19:21
PROVIDERS: Emergency Medicine
DX: R11.2 Nausea with vomiting, unspecified (principal); F12.90 Cannabis use, unspecified, uncomplicated; Z79.899 Other long term (current) drug therapy; K21.9 Gastro-esophageal reflux disease without esophagitis; J44.9 Chronic obstructive pulmonary disease, unspecified; I10 Essential (primary) hypertension; Z87.891 Personal history of nicotine dependence
CPT/HCPCS: 51701; 80053; 81001; 85025; 87086; 93005; 93010; 96361; 96374; 96375; 96376; 99284-25; J1630; J2765; J7030; J7120

== ENCOUNTER → 2025-03-16 | Outpatient (CLI) | payer OTHER ==
[~2025-03-16] MED LIST changes: +PROM12.5S PR
== END ==
LOC: LAB SHORT 16:21 → LAB 16:21
DX: N39.0 Urinary tract infection, site not specified (principal)
CPT/HCPCS: 87086